=== PATIENT | male | born 1955 | race Caucasian/White ===

== ENCOUNTER 2024-03-27 09:50 | Outpatient (AMB) | payer MEDICARE, OTHER, SELFPAY ==
--- NOTE | 2024-03-27 09:52 | MHC.OFFVIS ---
Vital Signs 03/27/24 10:05 Height 5 ft 10.5 in Weight 184 lb BMI 26.0 BP 184/96 H Blood Pressure Location Lt brachial Position Sitting Pulse 72 Intake Visit Reasons: sebaceous cyst of the lower back Intake Note: This patient presents for sebaceous cyst of the lower back. 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 He says that he had noticed this about 6 months ago. This has been increasing size however. He describes discomfort with this and wants this excised. He denies any drainage. [facility] Medical History (Updated 03/27/24 @ 10:11 by Alex Ortega MD) Epidermal cyst Hypertension Diabetes mellitus Surgical History (Updated 03/27/24 @ 10:04 by LOUISA Bal) History of back surgery Family History (Updated 03/27/24 @ 10:04 by LOUISA Bal) Maternal Aunt Cancer Social History Alcohol intake: current Patient Tobacco Use Status: Never used Tobacco Review of Systems Const Denies chills and Denies fever(s) Card Denies chest pain, Denies dyspnea and Denies dyspnea on exertion Resp Denies cough, Denies dyspnea and Denies dyspnea on exertion GI Denies hematochezia and Denies change in bowel habits Denies hematuria and Denies difficulty urinating Musc Denies back pain and Denies limited range of motion Neuro Details: Foot drop on the right Denies focal weakness and Denies convulsions Psych Denies depression and Denies mood swings Physical Exam Vital Signs: Last Vital Signs Pulse 72 03/27/24 10:05 BP 184/96 H 03/27/24 10:05 BMI result Body Mass Index 26.0 Const Other: Walks with a cane General: comfortable and no acute distress Orientation/consciousness: patient oriented x3 Neck Neck: Yes no lymphadenopathy Resp Auscultation: clear to auscultation bilaterally Cardio Rhythm: regular rhythm GI Palpation (GI): Soft to palpation, nontender and no guarding Back/Spine/Pelvis Other: Cystic induration, about 2.5 cm on the lower back, not inflamed currently, consistent with a epidermal cyst Neuro Other: Foot drop on the right General: patient oriented x3 Assessment & Plan Assessment & Plan (1) Epidermal cyst: Code(s): L72.0 - Epidermal cyst Category: Medical Plan I explained to him the technique of excision of this epidermal cyst under local anesthesia. I reviewed the risks including but not limited to bleeding, infections and poor healing, as well as the benefits and alternatives. He wants to proceed. This will be scheduled here the office on his next visit. Coding Level of Care Code New Pt Level 3 (74077) Diagnoses Epidermal cyst L72.0
[2024-03-27 10:05] VITALS: BP 184/96; PULSE 72; BMI 26.0
== END 2024-03-27 10:16 | disposition home or self-care (01) ==
PROVIDERS: PCP Internal Medicine; Referring Provider Internal Medicine; Visit Provider Surgery
DX: L72.0 Epidermal cyst (principal)
CPT/HCPCS: 99203

== ENCOUNTER → 2024-03-27 09:50 | Outpatient (BNVA) | payer MEDICARE, OTHER, SELFPAY | PROVIDERS: PCP Internal Medicine; Referring Provider Internal Medicine; Visit Provider Surgery | DX: L72.0 Epidermal cyst (principal) | CPT/HCPCS: 99202 ==

== ENCOUNTER 2024-04-06 09:56 | Outpatient (AMB) | payer MEDICARE, OTHER, SELFPAY ==
--- NOTE | 2024-04-06 09:57 | MHC.OFFVIS ---
Intake Visit Reasons: excision sebaceous cyst of the lower back Intake Note: Office procedure: excision sebaceous cyst of the lower back B2B Outside Sales Representative Required: No Accompanied by: Self / Same As Patient Allergies No Known Allergies Allergy (Verified 04/06/24 09:57) HPI HPI excision sebaceous cyst of the lower back: Details: He is here for excision of a cyst from the back. [facility] Medical History Epidermal cyst Hypertension Diabetes mellitus Surgical History History of back surgery Family History Maternal Aunt Cancer Social History Alcohol intake: current Patient Tobacco Use Status: Never used Tobacco Office Procedures Excision Details: He was in prone position. The area of the cyst was prepped and draped. Lidocaine 1% was used for local anesthesia. I made an incision on the skin overlying the cyst and this was carried down through the full-thickness of the skin and subcutaneous fat. I excised the entire cystic induration and it was sent as a specimen. This was about a 3.2 cm specimen at the widest dimension. I closed the incision with full-thickness nylon 3-0 simple interrupted sutures. Dressings were applied. The procedure was completed. He tolerated the procedure well. There were no immediate complications. 21311-pqaxf/arms/legs 3.1-4cm Procedure code (CPT) selection complete Assessment & Plan Assessment & Plan (1) Epidermal cyst: Code(s): L72.0 - Epidermal cyst Category: Medical Plan: Excision was done in the office. He tolerated procedure well. He was given wound care instructions. I will be seen in the office for removal of sutures. He can take Tylenol and ibuprofen for pain p.r.n.. Coding Level of Care Code Procedure Only Diagnoses Epidermal cyst L72.0 CPT Codes Trunk/Arms/Legs - CPT: 02757-lpifs/arms/legs 3.1-4cm ([id number])
== END 2024-04-06 10:24 | disposition home or self-care (01) ==
LOC: HO.HGS 09:56
PROVIDERS: PCP Internal Medicine; Visit Provider Surgery
DX: L72.0 Epidermal cyst (principal)
CPT/HCPCS: 11404

== ENCOUNTER 2024-04-06 09:56 | Outpatient (REF) | payer MEDICARE, OTHER, SELFPAY | END 2024-04-06 09:57 | disposition home or self-care (01) | LOC: HO.LNP 09:56 | PROVIDERS: PCP Internal Medicine; Visit Provider Surgery | DX: L72.0 Epidermal cyst (principal) | CPT/HCPCS: 11404; 88304 ==

== ENCOUNTER 2024-04-20 10:06 | Outpatient (AMB) | payer MEDICARE, OTHER, SELFPAY ==
--- NOTE | 2024-04-20 10:26 | MHC.OFFVIS ---
Vital Signs 04/20/24 10:27 Height 5 ft 10.5 in Weight 184 lb BMI 26.0 Intake Visit Reasons: s/p excision sebaceous cyst of the lower back Intake Note: This patient presents for post-op assessment status post excision sebaceous cyst of the lower back. Pt c/o; reports no complaints. Assistant Clinical Nurse Manager Required: No Accompanied by: Self / Same As Patient Allergies No Known Allergies Allergy (Verified 04/20/24 10:27) PFSH Medical History Epidermal cyst Hypertension Diabetes mellitus Surgical History History of back surgery Family History Maternal Aunt Cancer Social History Alcohol intake: current Patient Tobacco Use Status: Never used Tobacco Physical Exam Vital Signs: BMI result Body Mass Index 26.0 Assessment & Plan Assessment & Plan (1) Epidermal cyst: Code(s): L72.0 - Epidermal cyst Category: Medical Plan: The patient was seen by our office nurse Anthony. Coding Level of Care Code Global (30917) Diagnoses Epidermal cyst L72.0
[2024-04-20 10:27] VITALS: BMI 26.0
== END 2024-04-20 11:00 | disposition home or self-care (01) ==
PROVIDERS: PCP Internal Medicine; Visit Provider Surgery
DX: L72.0 Epidermal cyst (principal)
CPT/HCPCS: 99024

== ENCOUNTER → 2024-04-20 10:06 | Outpatient (BNVA) | payer MEDICARE, OTHER, SELFPAY | PROVIDERS: PCP Internal Medicine; Visit Provider Surgery | DX: Z48.817 Encounter for surgical aftercare following surgery on the skin and subcutaneous tissue (principal); Z98.890 Other specified postprocedural states | CPT/HCPCS: 99212 ==

== ENCOUNTER 2025-04-24 12:30 | Emergency (ER) | payer MEDICARE, OTHER, SELFPAY ==
--- NOTE | ~2025-04-24 | CT_ITS ---
EXAMINATION: CT HEAD WITHOUT CONTRAST CLINICAL INFORMATION: Dizziness COMPARISON: None available. TECHNIQUE: Contiguous axial imaging was performed from the skull base to vertex without intravenous administration of contrast. This CT examination was performed using dose optimization techniques as appropriate, variously including the following: *Automated exposure control *Adjustment of mA and/or kV according to patient size (this includes techniques or standardized protocols for targeted exams where dose is matched to indication/reason for exam; i.e. extremities or head) *Use of iterative reconstruction technique FINDINGS: There is no acute ischemic change. Periventricular deep white matter hypodensities are present. There is no intracranial hemorrhage. There is no mass-effect or midline shift. Basal cisterns and ventricles are within normal limits for age/cerebral volume. Orbits are symmetrical and unremarkable. Paranasal sinuses and mastoid air cells are pneumatized. There are no bony abnormalities. CT/CT head/brain wo IV con IMPRESSION: No acute intracranial abnormality. White matter hypodensities are likely related to small vessel angiopathy. Electronically signed by: Jaya Sosa MD 04/24/2025 02:07 PM MADIHA SIMS
[2025-04-24 12:46] VITALS: BP 177/94; PULSE 90; RESP 18; TEMP 36.6; O2SAT 99; BMI 25.1
--- NOTE | 2025-04-24 12:46 | ED_ITS ---
HPI - Dizziness General Chief Complaint: Dizziness Stated Complaint: Dizziness Time Seen by Provider: 04/24/25 13:45 Source: patient and old records reviewed Mode of arrival: ambulatory Limitations: no limitations History of Present Illness ED Provider: ARLETTE MURCIA Narrative: 70-year-old male with past medical history of hypertension, diabetes, hyperlipidemia, not on blood thinners here with complaint of feeling intermittent dizziness since Wednesday. He notes it has improved though he had a mild episode this morning. He has no associated numbness, weakness, chest pain, trouble breathing. He does feel nauseous at times. It only started when he is moving and then he feels the room spinning and it is transient. He states he came here just for precaution. He denies any recent travel but he did have a slight runny nose. He denies any ringing in the ears or hearing loss. 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 MD elicited complaint: dizziness Onset (ago): day(s) (Started Wednesday) Timing: sudden onset and intermittent Severity: moderate Description: room spinning Context: change in body position History of similar symptoms: No Exacerbating factors: movement/ambulation and change in body position Relieving factors: remaining still Associated symptoms: nausea Related Data Home Medications ?Medication ?Instructions ?Recorded ?Confirmed amlodipine 5 mg tablet 5 mg PO DAILY 03/27/2403/27 atorvastatin 40 mg tablet 40 mg PO DAILY 03/27/2403/08 dulaglutide 1.5 mg/0.5 mL 1.5 mg subcut QWEEK 03/27/24 03/27/24 subcutaneous pen injector (Trulicity) empagliflozin 10 mg tablet 10 mg PO DAILY 03/27/24 (Jardiance) lisinopril 40 mg tablet 40 mg PO DAILY 03/27/2403/08 metformin 1,000 mg tablet 1,000 mg PO DAILY 03/27/24 1 metoprolol tartrate 50 mg tablet 50 mg PO BID 03/27/24 03/27/24 Previous Rx's ?Medication ?Instructions ?Recorded meclizine 25 mg tablet 25 mg PO TID PRN dizziness # 30 tabs 04/24/25 Allergies Allergy/AdvReac Type Severity Reaction Status Date / Time No Known Allergies Allergy Verified 04/24/25 12:47 Review of Systems 2 Review of Systems: Constitutional : No Fever, No Chills, No Fatigue ENT/Mouth : No sore throat, No Rhinorrhea Eyes: No Eye Pain, No Swelling, No Redness Cardiovascular : No Chest Pain, No SOB, No Dyspnea on Exertion Respiratory : No Cough, No Sputum Gastrointestinal : Positive Nausea, No Vomiting, No Diarrhea, No abdominal Pain Genitourinary : No Dysuria, No Urinary Frequency, No Hematuria, Musculoskeletal : No joint pain, No Myalgias, No Joint Swelling Skin : No Skin Lesions, No rash Neuro : No Weakness, No Numbness, positive Dizziness, no Headache All other systems reviewed and are negative [facility] Past Medical History Attestation statement: The following information was validated with the patient. Source: old records reviewed Medical History Epidermal cyst Hypertension Diabetes mellitus Surgical History History of back surgery Family History Family History Maternal Aunt Cancer Social History Social History Alcohol intake: current Patient Tobacco Use Status: Never used Tobacco Smoked in Last 30 Days: Yes Use of substances other than those prescribed or required for medical reasons: No Advance Directives: Yes Advance Directives Information Provided: Yes Advance Directives on File: No Do you have a plan to hurt others: No Plan Physical Exam 2 Vital Signs: Vital Signs: Last Vital Signs Temp 0 F L 04/24/25 14:55 Pulse 87 04/24/25 14:55 Resp 17 04/24/25 14:55 BP 155/92 H 04/24/25 14:55 Pulse Ox 99 04/24/25 14:55 O2 Del Method Room Air 04/24/25 14:55 BMI result Body Mass Index 25.1 Appearance: Alert. Oriented X3. No acute distress. Eyes: Pupils equal, round and reactive to light. ENT: Pharynx normal. Both TMs appear normal Neck: Normal inspection. Neck supple. CVS: Normal heart rate and rhythm. Pulses normal. Respiratory: No respiratory distress. Breath sounds normal. Abdomen: Soft and nontender. Skin: Skin warm and dry. Normal skin color. Normal skin turgor. Extremities: No lower extremity edema. No calf ttp Neuro: Oriented X 3. No motor deficit. No sensory deficit. 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 Chronic right footdrop, he uses a cane but out of the ED he had a steady gait Course Course Course Narrative: This is an RME: Additional HPI, ROS, PE not included below will be deferred to primary provider. RME assessment and note performed by: Edwige Moore PA-C This is a 82-rbb[age]-new-male, with a hx of HTN, HLD, DM, who presents to the Er with a complaint of dizziness since wednesday. Reports initially dizziness was constant, resolved. Reports upon awakening he felt dizzy again. Neuros intact Plan: Labs, EKG, further ER eval needed Medications Administered Discontinued Medications Generic Name Dose Route Start Last Admin Trade Name Freq PRN Reason Stop Dose Admin Meclizine HCl 25 mg 04/24/25 14:25 04/24/25 14:29 Meclizine Hcl 25 Mg Tablet PO 04/24/25 14:26 25 mg ONCE ONE Administration Medical Decision Making Medical Decision Making [facility] Narrative: 70-year-old male with past medical history of hypertension, diabetes, hyperlipidemia, not on blood thinners here with complaint of intermittent dizziness that comes and goes with position changes but no other neuro deficits. He has no symptoms at this time. It gets worse with physician changes at this time I am going to obtain orthostatic vital signs, labs, EKG, CT head though I have very low suspicion for central pathology. This seems more like vertigo, he has no new neurologic findings on exam Differential Diagnosis Differential Diagnoses: The differential diagnosis associated with the presentation includes Vertigo, orthostatics Admission/Observation Consideration of admission/observation: Escalation of care including admission/observation considered He has no symptoms at this time and his exam was intermittent sudden onset suspect more vertiginous origin Lab Data [facility] Lab Attestation statement: I reviewed the patient's lab results. 04/24/25 13:04 04/24/25 13:04 Labs: Lab Results 04/24/25 Range/Units 13:04 WBC 6.9 (4.8-10.8) X10*3/uL RBC 4.99 (4.60-5.80) X10*6/uL Hgb 14.9 (14.0-18.0) g/dl Hct 43.5 (42.0-52.0) % MCV 87.2 (80.0-98.0) fL MCH 29.9 (27.0-33.0) pg MCHC 34.3 (31.0-36.0) g/dl RDW 12.7 (11.0-16.0) % Plt Count 180 (160-400) X10*3/uL MPV 10.5 (9.4-12.4) fL Immature Gran % (Auto) 0.6 H (0.0-0.4) % Neut % (Auto) 59.5 (45-73) % Lymph % (Auto) 28.9 (20-40) % [place] % (Auto) 8.7 (2-11) % Eos % (Auto) 1.9 (0-4) % Baso % (Auto) 0.4 (0-2) % Lymph # (Auto) 2.0 (1.2-4.9) X10*3/uL [place] # (Auto) 0.6 (0.1-1.2) X10*3/uL Eos # (Auto) 0.1 (0.0-0.4) X10*3/uL Baso # (Auto) 0.0 (0.0-0.2) X10*3/uL Abs Immat Gran (auto) 0.04 H (0.00-0.03) X10*3/uL Absolute Neuts (auto) 4.1 (2.0-8.3) x10*3/uL Absolute Nucleated RBC 0.000 (0.0-0.012) X10*3/uL Nucleated RBC % (auto) 0.0 (0.0-0.2) /100WBC Sodium 138 (135-145) mmol/L Potassium 4.2 (3.3-5.1) mmol/L Chloride 103 (96-108) mmol/L Carbon Dioxide 28 (22-29) mmol/L Anion Gap 11 L (12-20) BUN 13 (9-16) mg/dL Creatinine 1.13 (0.5-1.4) mg/dL Estim Creat Clear Calc 62.8 Estimated GFR > 60 Random Glucose 157 H (60-115) mg/dL Calcium 9.6 (8.4-10.2) mg/dL Magnesium 1.8 (1.6-2.6) mg/dL Total Bilirubin 0.7 (0.0-1.0) mg/dL Direct Bilirubin 0.2 (0.0-0.5) mg/dL AST 28 (5-37) U/L ALT 23 (0-40) U/L Alkaline Phosphatase 139 H (39-117) U/L Troponin I High Sens 10.2 (<3.5-35.0) ng/L Total Protein 7.5 (6.5-8.0) g/dL Albumin 4.4 (3.5-5.0) g/dL Independent Interpretation I performed an independent interpretation of an: EKG and CT Scan (Normal) Interpretation: Rate: 89 Rhythm: Normal sinus rhythm [place]: 428 normal Normal P waves. Normal OLIVIA. Normal QRS complex. ST T wave : Inverted T-waves V1, no ST elevation qTC: prior studies: No acute ischemia The study has been interpreted contemporaneously by me. . Radiology Impression Discussion of test interpretation with radiology: I have reviewed the radiologist's reading. Independent Historian Clinical information obtained from an independent historian. History obtained from or confirmed by: Spouse External Record Review External record reviewed: Outpatient record and Prior outpatient labs Prescription Management I considered prescription management with: Other Discharge Plan Discharge Clinical Impression: Vertigo Patient Disposition: Home, Self-Care Instructions: Vertigo (ED) Additional Instructions: At this time your EKG, your CT head, your labs are reassuring I would continue your medications Follow up with your primary care Return for any worsening symptoms such as chest pain, trouble breathing, numbness, weakness, any other concern Prescriptions: New meclizine 25 mg tablet 25 mg PO TID PRN (Reason: dizziness) Qty: 30 0RF No Action lisinopril 40 mg tablet 40 mg PO DAILY metoprolol tartrate 50 mg tablet 50 mg PO BID atorvastatin 40 mg tablet 40 mg PO DAILY amlodipine 5 mg tablet 5 mg PO DAILY Jardiance 10 mg tablet 10 mg PO DAILY Trulicity 1.5 mg/0.5 mL pen injector 1.5 mg subcut QWEEK metformin 1,000 mg tablet 1,000 mg PO DAILY Interventions: ED Discharge Assessment Last Done: 04/24/25 14:55 Discharge Date/Time: 04/24/25 14:56 Print Language: Nepalese
--- NOTE | 2025-04-24 12:51 | ECG_ITS ---
Test Reason : dizziness Blood Pressure : */* mmHG Vent. Rate : 89 BPM Atrial Rate : 89 BPM P-R Int : 164 ms QRS Dur : 86 ms QT Int : 352 ms P-R-T Axes : 33 74 22 degrees QTcB Int : 428 ms Normal sinus rhythm Normal ECG No previous ECGs available Referred By: Edwige Moore Electronically Signed By: BI MCCARTHY
[2025-04-24 13:09] LABS: MANUAL DIFF FLAG NO
[2025-04-24 13:12] LABS: Hematocrit 43.5 % (42.0-52.0); Hemoglobin 14.9 g/dl (14.0-18.0); Imm Gran Abs Auto 0.04 X10*3/uL (0.00-0.03); Imm Gran Pct Auto 0.6 % (0.0-0.4); Lymphocytes Absolute Auto 2.0 X10*3/uL (1.2-4.9); Mean Corpuscular HGB Conc 34.3 g/dl (31.0-36.0); Mean Corpuscular Hemoglobin 29.9 pg (27.0-33.0); Mean Corpuscular Volume 87.2 fL (80.0-98.0); NRBC Abs Auto 0.000 X10*3/uL (0.0-0.012); NRBC Pct Auto 0.0 /100WBC (0.0-0.2); Platelet Count 180 X10*3/uL (160-400); Red Blood Count 4.99 X10*6/uL (4.60-5.80); White Blood Count 6.9 X10*3/uL (4.8-10.8)
[2025-04-24 13:26] LABS: Alanine Aminotransferase 23 U/L (0-40); Albumin Level 4.4 g/dL (3.5-5.0); Alkaline Phosphatase 139 U/L (39-117); Anion Gap 11 (12-20); Aspartate Amino Transferase 28 U/L (5-37); Blood Urea Nitrogen 13 mg/dL (9-16); Calcium 9.6 mg/dL (8.4-10.2); Carbon Dioxide 28 mmol/L (22-29); Chloride 103 mmol/L (96-108); Creatinine Clr Calc Pharmacy 62.8; Estimated Glomerular Filt Rate > 60; Magnesium 1.8 mg/dL (1.6-2.6); Potassium 4.2 mmol/L (3.3-5.1); Sodium 138 mmol/L (135-145); Total Protein 7.5 g/dL (6.5-8.0)
[2025-04-24 13:35] LABS: Troponin-I High Sensitivity 10.2 ng/L (<3.5-35.0)
[2025-04-24 14:52] VITALS: BP 151/86; BP 163/95; PULSE 83; PULSE 87
[2025-04-24 14:53] VITALS: BP 155/92; PULSE 87
[2025-04-24 14:55] VITALS: BP 155/92; PULSE 87; RESP 17; TEMP -17.7; TEMP 0; O2SAT 99
[2025-04-24 15:39] LABS: Cholesterol 237 mg/dL (<200); HDL Cholesterol 46 mg/dL (>40); Triglycerides 221 mg/dL (<150)
== END 2025-04-24 14:56 | disposition home or self-care (01) ==
PROVIDERS: Physician Assistant Medical; Emergency Provider Emergency Medicine; PCP Student in an Organized Health Care Education/Training Program
DX: R42 Dizziness and giddiness (principal); I10 Essential (primary) hypertension; E11.9 Type 2 diabetes mellitus without complications; G51.0 Bell's palsy
CPT/HCPCS: 36415; 70450; 80048; 80061; 80076; 82306; 83735; 84443; 84484; 85025; 93005; 99284; 99285

== ENCOUNTER → 2025-04-24 12:51 | Outpatient (BNV) | payer MEDICARE, OTHER, SELFPAY | PROVIDERS: Emergency Provider Emergency Medicine; PCP Student in an Organized Health Care Education/Training Program; Visit Provider Internal Medicine | DX: R42 Dizziness and giddiness (principal) | CPT/HCPCS: 93010 ==

== ENCOUNTER 2025-04-24 13:00 | Outpatient (REF) | payer MEDICARE, OTHER, SELFPAY | END 2025-04-24 13:01 | disposition home or self-care (01) | LOC: HO.LAB 13:00 | PROVIDERS: Visit Provider Student in an Organized Health Care Education/Training Program | DX: Z13.89 Encounter for screening for other disorder (principal) ==

== ENCOUNTER → 2025-04-24 13:39 | Outpatient (BNV) | payer MEDICARE, OTHER, SELFPAY | PROVIDERS: Emergency Provider Emergency Medicine; PCP Student in an Organized Health Care Education/Training Program; Visit Provider Radiology Diagnostic Radiology | DX: R42 Dizziness and giddiness (principal); R90.82 White matter disease, unspecified | CPT/HCPCS: 70450 ==

== ENCOUNTER 2025-04-26 12:38 | Outpatient (AMB) | payer MEDICARE, OTHER, SELFPAY ==
--- NOTE | 2025-04-26 12:46 | MHC.PC.OV ---
Vital Signs 04/26/25 12:50 Height 5 ft 10 in Weight 183 lb BMI 26.3 BP 164/86 H Blood Pressure Location Lt brachial Position Sitting Respiration 20 Pulse 91 Pulse Source Pulse Oximeter Temp 97.6 F Temp Source Temporal Artery Scan Pulse Oximetry (%) 96 Oxygen Delivery Method Room Air Intake Visit Reasons: New Patient CJ Dr De Luna - see comments Electromatic Typist Required: No Accompanied by: Self / Same As Patient Allergies No Known Allergies Allergy (Verified 04/26/25 12:46) Medication List - Last Reconciled 04/26/25 by Ziyad Osborne MD amlodipine 5 mg PO DAILY atorvastatin 40 mg PO DAILY cholecalciferol (vitamin D3) 1,250 mcg PO QWEEK 12 weeks dulaglutide (Trulicity) 1.5 mg subcut QWEEK empagliflozin (Jardiance) 10 mg PO DAILY lisinopril 40 mg PO DAILY meclizine 25 mg PO TID PRN metoprolol tartrate 50 mg PO BID Tobacco use date assessed: 04/26/25 Fall risk assessment: 2 + Falls in past year Last assessed Fall Risk: 04/26/25 Dental Screening Dental Screen Date: 04/26/25 Did you have a dental visit in the last 12 months?: Yes Did you have a dental problem in the last 6 months where you did not have access to dental care?: No Was dental information given to patient?: Patient has dentist HPI HPI Comments History of Present Illness Details History of Present Illness The patient is a 70-year-old individual presenting for a follow-up after an emergency room visit for dizziness and for management of multiple chronic conditions. The patient experienced a sudden onset of dizziness on Wednesday afternoon, which prompted a visit to the emergency room. It was suggested that the dizziness could be vertigo attributed to a recent cold, from which the patient still has some residual symptoms. The patient received one dose of meclizine in the emergency room, which resolved the symptoms and caused sleepiness. The patient has not taken any further doses and reports no dizziness today, feeling well and able to walk independently. This is the first visit to this practice for the patient. The patient's medical history includes hypertension, hypercholesterolemia, and diabetes. The patient also has a right foot drop that developed gradually over 3-5 years following back surgery several years prior. The patient uses a walking stick for stability and previously wore a brace, which was discontinued after it caused a skin ulceration that has since healed with hyperbaric therapy. The patient is exploring surgical options for the foot drop. Regarding medication adherence, the patient admits to not always taking blood pressure medications in the morning. For diabetes management, the patient takes Trulicity and Jardiance but stopped taking metformin because the pills were too large to swallow. The previous prescribing physician has retired, and the patient's conditions have not been monitored since. The patient reports significant fatigue and a lack of energy recently. The patient's family history is positive for diabetes in a maternal grandfather and a pacemaker in the patient's mother for an unknown reason. There is no known family history of heart disease or cancer. The patient is a former smoker who quit three years ago, currently vapes THC in the evenings for sleep, and drinks alcohol occasionally. Medical History: - Hypertension - Hypercholesterolemia - Type 2 Diabetes Mellitus - Vertigo - Right foot drop, post-surgical - Vitamin D deficiency - History of skin ulceration on right foot, resolved with hyperbaric therapy - History of smoking, quit 3 years ago - Current THC use (vaping) for sleep Surgical History: - Back surgery, several years ago Medications: - Meclizine, as needed for dizziness - Trulicity for diabetes - Jardiance for diabetes - Atorvastatin 40 mg for high cholesterol - Metoprolol tartrate 50 mg twice daily for high blood pressure - Lisinopril 40 mg for high blood pressure - THC (vaped) for sleep Family History: - Maternal grandfather: History of diabetes. - Mother: History of pacemaker placement for an unknown condition. - Denies family history of heart disease or cancer. Diagnostic Results: - Labs (recent): - Random Blood Glucose: 157 mg/dL - Total Cholesterol: 237 mg/dL - LDL Cholesterol: 147 mg/dL - Vitamin D: 20 ng/mL - Blood counts and electrolytes: Normal - Procedures: - Colonoscopy: Performed last year at [facility] with no issues noted. 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 - Activity Level: Reports being active and moving around all day for work. - Tobacco Use: The patient is a former smoker, having quit three years ago. - Substance Use: The patient vapes THC in the evening to aid with sleep. - Alcohol Use: Reports drinking one or two glasses of wine on occasion, approximately one to two times per week. - Allergies: Denies any known allergies. 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 1. Little interest or pleasure in doing things: not at all 2. Feeling down, depressed, or hopeless: not at all 3. Trouble falling or staying asleep, or sleeping too much: not at all 4. Feeling tired or having little energy: not at all 5. Poor appetite or overeating: not at all 6. Feeling bad about yourself - or that you are a failure or have let yourself or your family down: not at all 7. Trouble concentrating on things, such as reading the newspaper or watching television: not at all 8. Moving or speaking so slowly that other people could have noticed. Or the opposite - being so fidgety or restless that you have been moving around a lot more than usual: not at all 9. Thoughts that you would be better off or of hurting yourself in some way: not at all Total score: 0 Depression Screening Interpretation: Negative Depression Screening Done: Yes Source: Developed by Drs. Keagan Cooney, Celina Parish, Chidi Jones and colleagues, with an educational emy from [employer]. Thrive Questionnaire Date Thrive assessed: 04/26/25 I am a: Patient What is your living situation today?: I have a steady place to live Within the past 12 months, did the food you bought not last and you didn't have the money to get more?: Never true Within the past 12 months, did you worry whether your food would run out before you got money to buy more?: Never true Do you have trouble paying for medicines?: No Do you have trouble getting transportation to medical appointments?: No Do you have trouble paying your heating and electricity bill?: No Do you have trouble taking care of your child, family member or friend?: No Do you have trouble with day-to-day activities such as bathing, preparing meals, shopping, managing finances, etc.?: No Are you currently unemployed and looking for a job?: No Are you interested in more education?: No THRIVE Score: 0 AUDIT C Alcohol Use Questionnaire (AUDIT-C) 1. How often do you have a drink containing alcohol?: 2-4 times a month 2. How many drinks containing alcohol do you have on a typical day when you are drinking?: 1 or 2 3. How often do you have six or more drinks on one occasion?: Never Total Score: 2 Score Reviewed/Action Taken: Yes SUZY-7 AMB Questionnaire SUZY-7 Date SUZY - 7 assessed: 05/09/25 Feeling nervous, anxious, or on edge: 0 = Not at all Not being able to stop or control worryin = Not at all Worrying too much about different things: 0 = Not at all Trouble relaxin = Not at all Being so restless that it is hard to sit still: 0 = Not at all Becoming easily annoyed or irritable: 0 = Not at all Feeling afraid as if something awful might happen: 0 = Not at all Total SUZY-7 score (0-4 normal; 5-9 mild; 10-14 moderate; 15-21 severe): 0 Source: Developed by Drs. Keagan Cooney, Celina Parish, Chidi Jones and colleagues, with an educational emy from [employer]. SUZY-7 Assessment Billing SUZY-7 Assessment Tool: SUZY-7 Assessment 68425 Review of Systems Narrative Review of Systems - Constitutional: Reports feeling fatigued and having low energy. - Neurological: Reports a history of dizziness that has since resolved. - Psychiatric: Denies feeling depressed. - Respiratory: Reports residual rhinitis from a recent cold. All systems reviewed & are unremarkable except as reviewed in HPI and above Physical exam (Primary Care) Vital Signs: Last Vital Signs Temp 97.6 F 04/26/25 12:50 Pulse 91 11/20/25 12:50 Resp 20 04/26/25 12:50 BP 164/86 H 04/26/25 12:50 Pulse Ox 96 04/26/25 12:50 Oxygen Delivery Method Room Air 04/26/25 12:50 BMI result Body Mass Index 26.3 Tobacco/Smoking Status: Tobacco use Status Tobacco use date assessed 04/26/25 04/26/25 12:48 Patient Tobacco Use Status Former Tobacco user 04/26/25 12:59 e-Cigarette/Vaping Use Currently Using (sometimes) 04/26/25 12:59 PHQ-9: PHQ-9 Score PHQ-9: Total score 0 04/26/25 13:07 Depression Screening Interpretation: Negative Thrive Assessment: Date of Thrive Assessment Date Thrive assessed 04/26/25 04/26/25 12:51 Narrative Physical Exam General: +Alert and oriented, Well nourished, No acute distress. Eye: Pupils are equal, round and reactive to light, Intact accommodation, Extraocular movements are intact, Normal conjunctiva, Vision unchanged. HENT: Normocephalic, Atraumatic, Tympanic membranes are clear, Normal hearing, Oral mucosa is moist, No pharyngeal erythema, Ear canals patent. Respiratory: Lungs CTA bilaterally, No wheeze, Respirations are non-labored. Cardiovascular: Regular rate, Regular rhythm, S1 auscultated, S2 auscultated, No murmur, Good pulses equal in all extremities, Normal peripheral perfusion, No edema. Gastrointestinal: Soft, Non-tender, Non-distended, Normal bowel sounds, No organomegaly. Musculoskeletal: Normal range of motion, Normal strength, No tenderness, No swelling, No deformity, Normal gait, Right foot drop noted. Integumentary: Warm, Dry, [place], Intact. Neurologic: Alert, Oriented, Normal sensory, Normal motor function, No focal defects, Cranial Nerves II-XII are grossly intact, Normal deep tendon reflexes. Psychiatric: Cooperative, Appropriate mood & affect, Normal judgment. Coding Level of Care Code New Pt Level 4 (86105) New Pt Prev Care >65yr (11250) Diagnoses Primary hypertension I10 Hypertension type: primary hypertension Type 2 diabetes mellitus without complication, without long-term current use of insulin E11.9 Diabetes mellitus complication status: without complication Diabetes mellitus fpc insulin use: without fpc use Diabetes mellitus type: type 2 Hyperlipidemia, unspecified hyperlipidemia type E78.5 Hyperlipidemia type: unspecified Vitamin D deficiency E55.9 Vertigo R42 Right foot drop M21.371 Annual physical exam Z00.00 Additional Codes SUZY-7 Assessment Billing - SUZY-7 Assessment Tool: SUZY-7 Assessment 96181 ([id number]) Comment 75030-07 Assessment & Plan Assessment & Plan (1) Hypertension: Comment: - The patient's blood pressure is elevated at 164/86 mmHg, with a history of similar readings and inconsistent medication use. - The plan is to restart amlodipine 5 mg daily. - The patient was instructed to purchase a blood pressure cuff, monitor levels twice daily (morning and afternoon), and maintain a log to bring to a 4-week follow-up appointment for potential medication adjustments. - The risks of uncontrolled hypertension, including stroke and cardiovascular events, were discussed. Code(s): I10 - Essential (primary) hypertension Category: Medical Qualifiers: Hypertension type: primary hypertension Qualified Code(s): I10 - Essential (primary) hypertension (2) Diabetes mellitus: Comment: - The patient's random glucose was 157 mg/dL, with home readings around 200 mg/dL, and the patient is non-adherent with metformin due to pill size. - The plan includes ordering an A1c. - If the A1c is greater than 8-9%, a referral to an heart surgeon will be made. - The risks of poorly controlled diabetes, such as nephropathy, heart disease, stroke, and neuropathy, were discussed. - A referral will be made to a appliance servicer for dietary counseling. Code(s): E11.9 - Type 2 diabetes mellitus without complications Category: Medical Qualifiers: Diabetes mellitus complication status: without complication Diabetes mellitus salvage determiner insulin use: without fpc use Diabetes mellitus type: type 2 Qualified Code(s): E11.9 - Type 2 diabetes mellitus without complications (3) Hyperlipidemia: Comment: - Recent labs showed an LDL of 147 mg/dL despite being on atorvastatin. - The plan is to increase the atorvastatin dose (from 20 mg to 40 mg), and the patient will verify the current dosage at home. - The importance of a low-fat diet was also emphasized. Code(s): E78.5 - Hyperlipidemia, unspecified Category: Medical Qualifiers: Hyperlipidemia type: unspecified Qualified Code(s): E78.5 - Hyperlipidemia, unspecified (4) Vitamin D deficiency: Comment: - The patient's vitamin D level is 20 ng/mL, and the patient reports fatigue. - A prescription for once-weekly vitamin D will be sent to the pharmacy for a 12-week course, with a plan to recheck levels afterward. - The benefits for bone health and energy were explained. Code(s): E55.9 - Vitamin D deficiency, unspecified Category: Medical (5) Vertigo: Comment: - The patient's recent episode of dizziness is likely post-viral vertigo, which has resolved following a single dose of meclizine in the ER. - The patient was given a prescription for as-needed use and will monitor for recurrence. Code(s): R42 - Dizziness and giddiness Category: Medical (6) Right foot drop: Comment: - This is a chronic issue post-back surgery for which the patient uses a cane. - The patient expressed interest in exploring surgical solutions. - The patient will gather information on a potential surgeon for a future referral. Code(s): M21.371 - Foot drop, right foot Category: Medical (7) Annual physical exam: Comment: - Recommended influenza and COVID-19 vaccinations; the patient will receive the flu shot today and get the COVID-19 shot at a pharmacy. - A referral will be placed for a appliance servicer. - The patient had a normal colonoscopy last year and does not require repeat screening at this time. Code(s): Z00.00 - Encounter for general adult medical examination without abnormal findings Category: Medical Plan: Health Maintenance - Colonoscopy Screening: The patient had a colonoscopy last year at [facility] with no issues found. - Vaccinations: Recommended influenza and COVID-19 vaccination. The patient will receive the flu shot today and will obtain the COVID-19 vaccine at a pharmacy. - Dietary Counseling: Discussed the need for a low-carbohydrate, diabetes-friendly diet. A referral will be placed for a appliance servicer as requested by the patient. - Self-Monitoring of Blood Pressure: Instructed the patient to obtain a blood pressure cuff and monitor readings twice daily for the next four weeks and to maintain a log. - Lifestyle: Encouraged the patient to continue to stay active but also to prioritize rest and self-care to avoid feeling run down. Patient was informed and verbally consented to the use of an ambient scribe for clinic note documentation during this visit. Vital signs reviewed. Comprehensive history, review of systems, and physical exam completed. Medications, allergies, and problem list reviewed and updated. Counseling provided on nutrition, regular exercise, sleep hygiene, and moderation of alcohol use. Discussed age-appropriate screenings (mammogram, colonoscopy, Pap, bone density) and immunizations (flu, COVID, shingles, Tdap). Screened for depression, fall risk, and home safety; no current concerns. Discussed stress management, dental and vision care, and importance of ongoing preventive follow-up. Routine labs ordered for metabolic and lipid screening. Patient educated on healthy lifestyle and agrees with the plan. Plan I discussed with the patient that the combination of uncontrolled hypertension, high cholesterol, and diabetes represents a trifecta of bad things that significantly increases the risk for cardiovascular events and strokes. I emphasized that while medications can assist, the patient must take responsibility for their health through consistent medication adherence, dietary changes, and regular monitoring. We discussed the plan to restart amlodipine and for the patient to monitor blood pressure twice daily at home to get an accurate assessment of control, accounting for potential white coat hypertension. I explained that the patient's reported fatigue could be related to the diagnosed vitamin D deficiency and that a 12-week course of high-dose supplementation has been prescribed. I have ordered blood work to check the patient's A1c and will refer to endocrinology if the level is significantly elevated. We also arranged for a referral to a appliance servicer and for the patient to receive the influenza vaccine today. The patient will follow up in four weeks to review the blood pressure log and lab results and make further adjustments to the treatment plan as needed. Orders: Orders Microalbumin, Random (w Creat) Today E11.9 - Type 2 diabetes mellitus without complications, Z00.00 - Encounter for general adult medical examination without abnormal findings Hemoglobin A1c Today E11.9 - Type 2 diabetes mellitus without complications, Z00.00 - Encounter for general adult medical examination without abnormal findings Referrals Apprentice Machinist Outside Nutrition Referral E11.9 - Type 2 diabetes mellitus without complications Medications: New cholecalciferol (vitamin D3) 1,250 mcg PO QWEEK 12 tabs 0RF 12 weeks E55.9 - Vitamin D deficiency, unspecified amlodipine 5 mg PO DAILY 30 tabs 0RF Patient Instructions: - Please go to the lab to have your blood work drawn today to check your blood sugar (A1c). - A prescription for amlodipine 5 mg has been sent to your pharmacy. Please start taking this once a day for your blood pressure. - A prescription for a high-dose Vitamin D capsule has also been sent. Take one capsule once a week for the next 12 weeks. This may help with your fatigue. - Please purchase a blood pressure machine. Check your blood pressure every morning after taking your pills and again in the afternoon. Write down the numbers in a log. - It is very important to take all three of your blood pressure pills (metoprolol, lisinopril, and amlodipine) every morning. - Check the dosage on your atorvastatin (cholesterol pill) bottle at home and bring the bottle with you to your next visit. - We are setting up a referral to a appliance servicer, who will contact you to help you create a healthy eating plan. - You will get your flu shot today in the office. Please get your COVID-19 shot at a local pharmacy. - Please schedule a follow-up appointment at the front office developer for four weeks from now.
[2025-04-26 12:50] VITALS: BP 164/86; PULSE 91; RESP 20; TEMP 36.4; O2SAT 96; BMI 26.3
== END 2025-04-26 13:24 | disposition home or self-care (01) ==
PROVIDERS: PCP Student in an Organized Health Care Education/Training Program; Visit Provider Student in an Organized Health Care Education/Training Program
DX: I10 Essential (primary) hypertension (principal); E11.69 Type 2 diabetes mellitus with other specified complication; E78.5 Hyperlipidemia, unspecified; E55.9 Vitamin D deficiency, unspecified; R42 Dizziness and giddiness; M21.371 Foot drop, right foot

== ENCOUNTER 2025-04-26 12:38 | Outpatient (REF) | payer MEDICARE, OTHER, SELFPAY ==
[2025-04-26 16:27] LABS: Microalbum/Creatinine Ratio Ur 197.8 ug/mg cr (<30)
== END 2025-04-26 12:39 | disposition home or self-care (01) ==
LOC: HO.LAB 12:38
PROVIDERS: PCP Student in an Organized Health Care Education/Training Program; Visit Provider Student in an Organized Health Care Education/Training Program
DX: Z00.00 Encounter for general adult medical examination without abnormal findings (principal); E11.9 Type 2 diabetes mellitus without complications; R42 Dizziness and giddiness; M21.371 Foot drop, right foot; I10 Essential (primary) hypertension; E78.5 Hyperlipidemia, unspecified; E55.9 Vitamin D deficiency, unspecified; Z79.899 Other long term (current) drug therapy
CPT/HCPCS: 36415; 82043; 82570; 83036; 96127; 99202

== ENCOUNTER 2025-05-24 14:09 | Outpatient (AMB) | payer MEDICARE, OTHER, SELFPAY ==
[2025-05-24 14:25] VITALS: BP 140/76; PULSE 85; TEMP 36.3; O2SAT 99; BMI 25.7
--- NOTE | 2025-05-24 14:25 | MHC.PC.OV ---
Vital Signs 05/24/25 14:25 Height 5 ft 10 in Weight 179 lb BMI 25.7 BP 140/76 H Blood Pressure Location Rt brachial Position Sitting Pulse 85 Pulse Source Pulse Oximeter Temp 97.3 F Temp Source Temporal Artery Scan Pulse Oximetry (%) 99 Oxygen Delivery Method Room Air Intake Visit Reasons: 4 WK F/U BP Director Consumer Required: No Accompanied by: Spouse Allergies No Known Allergies Allergy (Verified 05/24/25 14:25) Medication List - Last Reconciled 05/24/25 by Ziyad Osborne MD atorvastatin 40 mg PO DAILY cholecalciferol (vitamin D3) 1,250 mcg PO QWEEK 12 weeks empagliflozin (Jardiance) 25 mg PO DAILY lisinopril 40 mg PO DAILY meclizine 25 mg PO TID PRN metoprolol tartrate 50 mg PO BID Tobacco use date assessed: 05/24/25 Fall risk assessment: No Falls in past year Last assessed Fall Risk: 05/24/25 Dental Screening Dental Screen Date: 05/24/25 Did you have a dental visit in the last 12 months?: No Did you have a dental problem in the last 6 months where you did not have access to dental care?: No HPI HPI Comments History of Present Illness Details History of Present Illness The patient is a 70 year old male presenting for a follow-up on his chronic conditions. He has been taking amlodipine 5 mg for the past four weeks for hypertension but has not been checking his blood pressure at home. His other medications for blood pressure include lisinopril 40 mg and metoprolol tartrate. The patient has a history of type 2 diabetes with very poor glycemic control, as evidenced by a recent HbA1c of 8.6%. He is currently treated with Trulicity, which he has been on for approximately three to four years without a dose increase, and Jardiance 25 mg. He does not monitor his blood glucose levels at home, but recalls his HbA1c was once down to 7.0%. He has a history of vertigo, for which he used meclizine once with good effect and has not needed it since. The patient has a history of significant weight loss, going from a peak of 270 pounds down to as low as 171-172 pounds through diet modifications and intermittent fasting, although he notes his lab values have not improved as expected. He reports a history of gallstones, which have been removed. Medical History: - Hypertension - Type 2 diabetes mellitus - Hyperlipidemia - Vertigo - History of gallstones Surgical History: - Cholecystectomy Medications: - Amlodipine 5 mg for hypertension - Trulicity for type 2 diabetes mellitus - Jardiance 25 mg for type 2 diabetes mellitus - Lisinopril 40 mg for hypertension - Metoprolol tartrate for hypertension - Meclizine for vertigo, used as needed Diagnostic Results: - Labs: HbA1c 8.6% Social History - Diet: The patient reports difficulty with dietary restrictions for his diabetes. - He expresses confusion about what to eat, noting restrictions on juices, certain fruits, pasta, bread, and rice. - He eats a lot of chicken and prefers baked preparations. - The patient reports a diet primarily consisting of meats and vegetables but finds it boring. - Weight Management: The patient has a history of significant weight loss, starting at 270 pounds and reaching a low of 171-172 pounds through diet and intermittent fasting. - He has lost 4 pounds since the last visit. [facility] Medical History Right foot drop Annual physical exam Vitamin D deficiency Hyperlipidemia Epidermal cyst Hypertension Diabetes mellitus Surgical History History of back surgery Family History (Updated 05/24/25 @ 14:31 by Sunitha Naylor MA) Maternal Aunt Cancer Mother No problems noted. Father No problems noted. 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 How many drinks containing alcohol do you have on a typical day when you are drinking?: 1 or 2 3. How often do you have six or more drinks on one occasion?: Never Total Score: 0 SUZY-7 AMB Questionnaire SUZY-7 Date SUZY - 7 assessed: 05/09/25 Source: Developed by Drs. Keagan LCelina Ramachandran, Chidi Jones and colleagues, with an educational emy from [employer]. Review of Systems Narrative Review of Systems - General: Reports feeling well. - Neurological: Reports a resolved episode of vertigo after taking meclizine once. All systems reviewed & are unremarkable except as reviewed in HPI and above Physical exam (Primary Care) Vital Signs: Last Vital Signs Temp 97.3 F 05/24/25 14:25 Pulse 85 05/24/25 14:25 BP 140/76 H 05/24/25 14:25 Pulse Ox 99 05/24/25 14:25 Oxygen Delivery Method Room Air 05/24/25 14:25 BMI result Body Mass Index 25.7 Tobacco/Smoking Status: Tobacco use Status Tobacco use date assessed 05/24/25 05/24/25 14:31 Patient Tobacco Use Status Never used Tobacco 05/24/25 14:31 e-Cigarette/Vaping Use Never Used (sometimes) 05/24/25 14:31 Thrive Assessment: Date of Thrive Assessment Date Thrive assessed 04/26/25 05/24/25 14:25 Narrative Physical Exam General: +Alert and oriented, Well nourished, No acute distress. Eye: Pupils are equal, round and reactive to light, Intact accommodation, Extraocular movements are intact, Normal conjunctiva, Vision unchanged. HENT: Normocephalic, Atraumatic, Tympanic membranes are clear, Normal hearing, Oral mucosa is moist, No pharyngeal erythema, Ear canals patent. Respiratory: Lungs CTA bilaterally, No wheeze, Respirations are non-labored. Cardiovascular: Regular rate, Regular rhythm, S1 auscultated, S2 auscultated, No murmur, Good pulses equal in all extremities, Normal peripheral perfusion, No edema. Gastrointestinal: Soft, Non-tender, Non-distended, Normal bowel sounds, No organomegaly. Musculoskeletal: Normal range of motion, Normal strength, No tenderness, No swelling, No deformity, Normal gait. Integumentary: Warm, Dry, [place], Intact. Neurologic: Alert, Oriented, Normal sensory, Normal motor function, No focal defects, Cranial Nerves II-XII are grossly intact, Normal deep tendon reflexes. Psychiatric: Cooperative, Appropriate mood & affect, Normal judgment. Coding Level of Care Code Est Pt Level 4 (93353) Add On Problem Visit Only Diagnoses Primary hypertension I10 Hypertension type: primary hypertension Type 2 diabetes mellitus without complication, without long-term current use of insulin E11.9 Diabetes mellitus type: type 2 Diabetes mellitus emt intermediate insulin use: without emt intermediate use Diabetes mellitus complication status: without complication Hyperlipidemia, unspecified hyperlipidemia type E78.5 Hyperlipidemia type: unspecified Vertigo R42 Assessment & Plan Assessment & Plan (1) Hypertension: Comment: - The patient's blood pressure remains elevated at 140/76 mmHg despite treatment with amlodipine 5 mg for four weeks. - He does not monitor his blood pressure at home. - The plan is to increase amlodipine to 10 mg daily. - A new prescription will be sent. Code(s): I10 - Essential (primary) hypertension Category: Medical Qualifiers: Hypertension type: primary hypertension Qualified Code(s): I10 - Essential (primary) hypertension (2) Diabetes mellitus: Comment: - The patient demonstrates poor glycemic control with an HbA1c of 8.6%. - He is not monitoring his glucose at home. - The risks associated with uncontrolled sugars, including damage to blood vessels, were discussed. - The plan is to increase Trulicity from 1.5 mg to 3 mg weekly. - A new prescription will be sent. - Jardiance 25 mg will be continued. Code(s): E11.9 - Type 2 diabetes mellitus without complications Category: Medical Qualifiers: Diabetes mellitus type: type 2 Diabetes mellitus emt intermediate insulin use: without emt intermediate use Diabetes mellitus complication status: without complication Qualified Code(s): E11.9 - Type 2 diabetes mellitus without complications (3) Hyperlipidemia: Comment: - The patient's cardiovascular health is at risk due to the combination of hypertension, diabetes, and hyperlipidemia. - Extensive counseling was provided on dietary modification. - Recommended a high-protein diet with chicken, fish, turkey, and vegetables, while limiting red meats, processed foods, starchy carbohydrates, and sugars. - A referral to a dietitian was offered, and the patient was directed to diabetes.org for resources. Code(s): E78.5 - Hyperlipidemia, unspecified Category: Medical Qualifiers: Hyperlipidemia type: unspecified Qualified Code(s): E78.5 - Hyperlipidemia, unspecified (4) Vertigo: Comment: - The patient reports a previous episode of vertigo that responded well to a single dose of meclizine. - He has not had symptoms since. - He will continue to have meclizine available as needed. Code(s): R42 - Dizziness and giddiness Category: Medical Plan: Health Maintenance: - Discussed the importance of diet in managing hypertension, diabetes, and hyperlipidemia. - Recommended a diet high in protein (chicken, fish, turkey) and vegetables, while limiting carbohydrates, processed foods, and high-sugar items. - Advised to review dietary resources on the [place] [employer] website at diabetes.org. - Patient agreed to a follow-up appointment in three months to monitor progress. - Blood work, including an HbA1c, will be performed at the next visit. Patient was informed and verbally consented to the use of an ambient scribe for clinic note documentation during this visit. Plan I reviewed the patient's elevated blood pressure of 140/76 mmHg and recent HbA1c of 8.6%, indicating uncontrolled hypertension and type 2 diabetes. I explained the significant cardiovascular risks associated with the combination of high blood pressure, high cholesterol, and diabetes. We discussed medication adjustments, and I have sent new prescriptions to increase his amlodipine to 10 mg and Trulicity to 3 mg. We had a detailed conversation about the critical role of diet, and I provided guidance on adopting a high-protein, low-carbohydrate diet, recommending he visit diabetes.org for more information. The patient has agreed to make dietary changes and will follow up in three months, at which time we will reassess his lab work, including his HbA1c. Medications: New dulaglutide (Trulicity) 3 mg (0.5 mL) subcut QWEEK 2 mL 3RF amlodipine 10 mg PO DAILY 30 tabs 0RF amlodipine 10 mg PO DAILY 90 tabs 0RF Discontinued amlodipine Discontinued Reason: Doctor's Order 5 mg PO DAILY 30 tabs 0RF Patient Instructions: - Increase your amlodipine dose to 10 mg once daily for your blood pressure. - Increase your Trulicity dose to 3 mg once a week for your diabetes. - Continue taking your Jardiance, lisinopril, and metoprolol as prescribed. - Focus on changing your diet to include more protein like chicken and fish, and vegetables. - Avoid foods high in sugar and carbohydrates, such as pasta, bread, rice, juices, and sweets. - For more information on a diabetic-friendly diet, you can visit the [place] [employer] website at diabetes.org. - Schedule a follow-up appointment in three months. We will check your blood work, including your A1c, at that visit.
--- OUTSIDE RECORDS SUMMARY | 2025-05-24 18:21 | XMS_ITS | Patient Health Record ---
Author Organization [facility] Address [address] [place] [address] Care Team Providers Care Glove Cuffer Name Role Phone SAVANNAH BRUCE Primary Care Provider Allergies No Known Allergies Reason For Referral No Information Medications Medication SIG (Take, Route, Frequency, Duration) Notes Start Date End Date Status Pen [place] 31G X 5 MM Miscellaneous as directed daily; Duration: 30 days E11.9 11/19/2021 Active amLODIPine Besylate 5 MG Tablet 1 tablet Orally Once a day Active Atorvastatin Calcium 40 MG Tablet 1 tablet Orally Once a day Active Metoprolol Tartrate 50 MG Tablet 1 tablet with food Orally Twice a day Active Lisinopril 40 MG Tablet 1 tablet Orally Once a day Active Trulicity 1.5 MG/0.5ML Solution Pen-injector as directed Subcutaneous once a week Active metFORMIN HCl 1000 MG Tablet 1 tablet with a meal Orally twice a day Active Jardiance 10 MG Tablet 1 tablet Orally O nce a day Active Lantus SoloStar 100 UNIT/ML Solution Pen-injector as directed start 10 units at bedtime SC at bedtime; Duration: 30 day(s) 11/19/2021 Active Social History Tobacco Use: Social History Observation Description Date Details (start date - stop date) Former Smoker NA - NA Social History Tobacco Use: Social Info Question Answer Notes Smoking Are you a: former smoker How long has it been since you last smoked? > 10 years Additional Details Category Social Info Options Details General Occupation: [employer] asbestos exposure: no Past year's travels: [place] alcohol use: yes social, socially drug use: no Coffee/Tea/Soda: yes coffee Marital Status experience yes [employer] Living with Pets none smokers in household no Problems Problem Type SNOMED Code ICD Code Onset Dates Problem Status W/U Status Risk Notes Problem Essential hypertension (89106582) Essential hypertension (I10) Active confirmed Problem Essential hypertension (61082397) Essential (primary) hypertension (I10) Active confirmed Problem Mixed hyperlipidemia (878689618) Mixed hyperlipidemia (E78.2) Active confirmed Problem Hyperlipidaemia (51949653) Hyperlipidemia, unspecified hyperlipidemia type (E78.5) Active confirmed Problem Type II diabetes mellitus without complication (611028472) Type 2 diabetes mellitus without complication, without long-term current use of insulin (E11.9) Active confirmed Problem Skin ulcer of right great toe, unspecified ulcer stage (L97.519) Active confirmed Problem Hyperglycemia due to type 2 diabetes mellitus (050229967692216) Uncontrolled type 2 diabetes mellitus with hyperglycemia (E11.65) Active confirmed Plan Of Treatment Pending Test Test Name Order Date PSA, TOTAL (5363) 02/13/2022 Insurance Providers Payer Name Payer Address Payer Phone Subscriber Number Group Number Insured Name Patient Relationship to Insured Coverage Start Date Coverage End Date MEDICARE [employer] [address] [place] [address] [id number] KASH MARTINEZ Self - patient is the insured 2 [employer] [facility] MEDICARE SUPPLEMENT [facility] [address] [place] [phone] [id number] KASH MARTINEZ Self - patient is the insured Medical (General) History Medical History History ICD Code diabetes high blood pressure hyperlipidemia Surgical History Surgery Date(Month/Year) L4, L5
== END 2025-05-24 14:47 | disposition home or self-care (01) ==
LOC: HO.HMCHD 14:10
PROVIDERS: PCP Student in an Organized Health Care Education/Training Program; Visit Provider Student in an Organized Health Care Education/Training Program
DX: I10 Essential (primary) hypertension (principal); E11.9 Type 2 diabetes mellitus without complications; E78.5 Hyperlipidemia, unspecified; R42 Dizziness and giddiness

== ENCOUNTER → 2025-05-24 14:09 | Outpatient (BNVA) | payer MEDICARE, OTHER, SELFPAY | PROVIDERS: PCP Student in an Organized Health Care Education/Training Program; Visit Provider Student in an Organized Health Care Education/Training Program | DX: I10 Essential (primary) hypertension (principal); E11.9 Type 2 diabetes mellitus without complications; E78.5 Hyperlipidemia, unspecified; R42 Dizziness and giddiness; Z79.899 Other long term (current) drug therapy | CPT/HCPCS: 99212 ==